=== PATIENT | female | born 2000 | race Caucasian/White ===

== ENCOUNTER 2020-07-12 15:40 | Emergency (ER) | payer OTHER ==
[~2020-07-12] VITALS: Ht 154.9 cm; Wt 45.0 kg
[2020-07-12] MEDS ORDERED: KETOROLAC 60MG 2ML VIAL IM ONE (17:30)
[2020-07-12] MEDS ORDERED: LIDOCAINE 5% (LIDODERM) PATCH TD ONE (17:30)
[2020-07-12 17:35] VITALS: BP 116/79
[2020-07-12] MEDS ORDERED: CYCLOBENZAPRINE 10MG TABLET PO ONE (18:15)
[2020-07-12] MEDS ORDERED: CYCL-707 PO (18:20)
[2020-07-12] MEDS ORDERED: **NOTE PATIENT COMMENT** MISC XX SCH (21:00)
== END 2020-07-12 18:23 | disposition home or self-care (01) ==
LOC: M ED 15:40
DX: S29.012A Strain of muscle and tendon of back wall of thorax, initial encounter (principal); X50.1XXA Overexertion from prolonged static or awkward postures, initial encounter; Y92.89 Other specified places as the place of occurrence of the external cause; Y93.89 Activity, other specified; Y99.9 Unspecified external cause status; M79.7 Fibromyalgia
CPT/HCPCS: 96372; 99283; J1885